=== PATIENT | female | born 1945 | race Caucasian/White ===

== ENCOUNTER 2025-04-17 10:04 | Emergency (ER) | payer MEDICARE, BC | END 2025-04-17 13:50 | disposition home or self-care (01) | LOC: JD.ED 10:04 | DX: R33.9 Retention of urine, unspecified (principal); Z86.16 Personal history of COVID-19; Z90.710 Acquired absence of both cervix and uterus; Z88.8 Allergy status to other drugs, medicaments and biological substances | CPT/HCPCS: 51798; 99283 ==